=== PATIENT | female | born 1950 | race Hispanic/Latino ===

== ENCOUNTER 2016-10-26 17:13 | Emergency (ER) | payer OTHER, MEDICARE, BC ==
[2016-10-26 17:14] VITALS: BMI 36.0
[2016-10-26 17:34] VITALS: TEMP 98
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
[2016-10-26 18:47] VITALS: BP 137/74; PULSE 79; RESP 18; O2SAT 100
== END 2016-10-26 18:44 | disposition home or self-care (01) ==
LOC: ED 17:13
DX: Z04.1 Encounter for examination and observation following transport accident (principal)

== ENCOUNTER 2016-11-14 10:12 | Observation (INO) | payer MEDICARE, BC ==
[2016-11-14 10:54] LABS: BASO # 0.04 K/mm3 (0.0-2.0); BASO % 0.4 % (0.0-3.0); EOS # 0.1 (0.0-0.7); EOS % 0.6 % (1.5-5.0); GRAN # 7.66 (1.4-6.5); GRAN % 73.9 % (50.0-68.0); HEMATOCRIT 36.4 % (36.0-48.0); LYMPH % 18.8 % (22.0-35.0); MEAN CELL VOLUME 88.6 fl (80.0-105.0); MEAN CORPUSCULAR HEMOGLOBIN 30.9 pg (25.0-35.0); MEAN CORPUSCULAR HGB CONC 34.9 g/dl (31.0-37.0); MEAN PLATELET VOLUME 9.6 fl (7.0-11.0); MONO # 0.7 (0.1-0.6); MONO % 6.3 % (1.0-6.0); RED CELL DISTRIBUTION WIDTH 13.2 % (11.5-14.5); WHITE BLOOD COUNT 10.4 10^3/ul (4.5-11.0)
[2016-11-14] MEDS ORDERED: Enoxaparin 100 mg Syringe SC STA (10:58)
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
[2016-11-14 10:59] LABS: INR 0.98 (0.93-1.08); PARTIAL THROMBOPLASTIN TIME 26.8 Seconds (23.7-30.8)
[2016-11-14 11:02] LABS: ALB/GLOB RATIO 1.5 (1.1-1.8); ALKALINE PHOSPHATASE 99 U/L (38-133); ALT/SGPT 28 U/L (7-56); AST/SGOT 30 U/L (15-39); BILIRUBIN,TOTAL 0.6 mg/dL (0.2-1.3); BLOOD UREA NITROGEN 24 mg/dL (7-21); CALCIUM 9.5 mg/dL (8.4-10.5); CARBON DIOXIDE 26 mmol/L (21-33); CHLORIDE 101 mmol/L (98-107); GFR AFRICAN-AMERICAN > 60; GLUCOSE,RANDOM 109 mg/dL (70-110); MAGNESIUM 1.6 mg/dL (1.7-2.2); POTASSIUM 4.2 mmol/L (3.6-5.0); SODIUM 139 mmol/L (132-148); TOTAL PROTEIN 6.8 g/dL (5.8-8.3)
[2016-11-14 11:19] LABS: TROPONIN I < 0.01 ng/mL
--- NOTE | 2016-11-14 11:21 | RAD ---
HISTORY: Chest pain COMPARISON: 06/12/2012. FINDINGS: LUNGS: The lungs are well inflated and clear. PLEURA: No significant pleural effusion identified, no pneumothorax apparent. CARDIOVASCULAR: Normal. OSSEOUS STRUCTURES: No significant abnormalities. VISUALIZED UPPER ABDOMEN: Normal. OTHER FINDINGS: None. IMPRESSION: No active pulmonary disease.
[2016-11-14 11:23] LABS: PH,URINE 6.5 (4.7-8.0); URINE BILIRUBIN NEGATIVE (NEGATIVE); URINE BLOOD NEGATIVE (NEGATIVE); URINE GLUCOSE (UA) NEGATIVE (NEGATIVE); URINE KETONE NEGATIVE (NEGATIVE); URINE LEUKOCYTE ESTERASE NEGATIVE Leu/uL (NEGATIVE); URINE PROTEIN NEGATIVE mg/dL (<30 mg/dL); URINE UROBILINOGEN 0.2 E.U./dL (<1 E.U./dL)
[2016-11-14 11:25] LABS: URINE APPEARANCE CLEAR (CLEAR); URINE COLOR YELLOW (YELLOW)
--- NOTE | 2016-11-14 12:56 | CARD ---
APPROVED REPORT EKG Measurement Heart [id number] <Conclusion> Atrial fibrillation with rapid ventricular response with premature ventricular or aberrantly conducted complexes Left axis deviation Nonspecific ST abnormality Abnormal ECG
[2016-11-14 15:25] VITALS: BMI 35.3
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
[2016-11-15 06:02] VITALS: O2SAT 97
[2016-11-15] MEDS ORDERED: Magnesium Oxide 400 mg Tab UD PO SCH (10:00)
--- NOTE | 2016-11-15 11:42 | CARD ---
APPROVED REPORT EKG Measurement Heart [id number] <Conclusion> Sinus bradycardia Otherwise normal ECG
[2016-11-15 11:54] VITALS: BP 140/75; PULSE 55; RESP 18; TEMP 97.5
--- NOTE | 2016-11-15 18:24 | CARD ---
APPROVED REPORT EXAM: Two-dimensional and M-mode echocardiogram with Doppler and color Doppler. INDICATION Atrial Fibrillation 2D DIMENSIONS Left Atrium (2D)3.6 (1.6-4.0cm)IVSd1.0 (0.7-1.1cm) LVDd4.7 (3.9-5.9cm)PWd1.1 (0.7-1.1cm) LVDs2.7 (2.5-4.0cm)FS (%) 42.0 % LVEF (%)73.0 (>50%) M-Mode DIMENSIONS Aortic Root3.30 (2.2-3.7cm)Aortic Cusp Exc.2.00 (1.5-2.0cm) Aortic Valve AoV Peak Kmuqpoid538.0cm/Purnima Peak GR.7mmHg Mitral Valve MV E Chajmhqq59.7cm/sMV A Sauaxxho93.6cm/sE/A ratio1.3 TDI E/Lateral E'0.0E/Medial E'0.0 Tricuspid Valve TR Peak [id number]/sRAP [id number] Peak Gr.27mmHg [id number] LEFT VENTRICLE The left ventricle is normal size. There is normal left ventricular wall thickness. The left ventricular function is normal. The left ventricular ejection fraction is within the normal range. There is normal LV segmental wall motion. RIGHT VENTRICLE The right ventricle is normal size. The right ventricular systolic function is normal. ATRIA The left atrium size is normal. The right atrium size is normal. The interatrial septum is intact with no evidence for an atrial septal defect. AORTIC VALVE The aortic valve is mildly sclerotic. There is trace aortic regurgitation. There is no aortic valvular stenosis. MITRAL VALVE The mitral valve is normal in structure. There is no mitral valve regurgitation noted. TRICUSPID VALVE The tricuspid valve is normal in structure. There is mild tricuspid regurgitation. PULMONIC VALVE The pulmonary valve is normal in structure. GREAT VESSELS The aortic root is normal in size. The IVC is normal in size and collapses >50% with inspiration. PERICARDIAL EFFUSION There is no pleural effusion. There is no pericardial effusion. <Conclusion> Normal chamber size. Normal LV systolic function. Mild TR.
--- NOTE | 2016-11-16 00:41 | PN ---
DATE: 11/15/2016 SUBJECTIVE: The patient is seen sitting in chair on telemetry. She is comfortable. She converted to sinus rhythm yesterday afternoon. She has had no further chest pain. CURRENT MEDICATIONS: Include diltiazem 60 mg t.i.d., hydrochlorothiazide 25 mg daily, Zestril 5 mg daily, and magnesium oxide. OBJECTIVE: GENERAL: She is a middle-aged woman who appears comfortable at the present time. VITAL SIGNS: Blood pressure is 110/70, pulse of 74 and sinus, respirations are 14. She is afebrile. HEENT: No JVD. CHEST: Clear to auscultation and percussion. HEART: PMI in normal position. No pathologic murmur or gallops noted. ABDOMEN: Soft and nontender with normoactive bowel sounds. EXTREMITIES: No edema. DIAGNOSTIC DATA: Cardiac enzymes are negative. TSH was 3.14. Echocardiogram is pending. IMPRESSION: 1. Paroxysmal atrial fibrillation, currently in sinus rhythm. 2. History of hypertension. RECOMMENDATIONS: From cardiac standpoint, she appears stable. We will discharge home at this time. She will be discharged home on long-acting diltiazem in place of her amlodipine. An echocardiogram is pending and will be reviewed. Now, the patient's stress test will be planned as well. One aspirin daily was advised. She has recurrent atrial fibrillation and rate control therapy can be considered. Desmond Carcamo MD
--- NOTE | 2016-11-16 02:50 | HP ---
CHIEF COMPLAINT AND HISTORY OF PRESENT ILLNESS: This is a 66-year-old female who came into the hospital, was found to be in atrial fibrillation. She is having chest pain. The patient has a history of hypertension. She states that she has woken up in the morning, before going to work, started having shortness of breath and thought she was anxious, she was lightheaded, so she decided to have her drive her to work. 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 She is trying to see Dr. Crowley while at work, and he had evaluated her and found that she was having an irregular heart beat, so she was sent to the emergency room for further evaluation. The patient says that she has not had these symptoms in the past. She has no complaints of any fever or chills. No nausea. No vomiting. She feels well. She has gone back into the sinus rhythm. REVIEW OF SYSTEMS: All the review of symptoms are within normal limits except what is mentioned. SOCIAL HISTORY: She smoked about 20 years ago, but quit about 20 years ago. FAMILY HISTORY: No premature heart disease in the family. Father's health is unknown. She has a sister who had stent placement in the 50s. Mother heart disease as well. PAST MEDICAL HISTORY: Osteoarthritis, hypertension. PAST SURGICAL HISTORY: Bilateral hip replacement, cholecystectomy, spinal surgery x2 with rods and screws in place, tonsillectomy, right eye surgery. ALLERGIES: NO KNOWN DRUG ALLERGIES. HOME MEDICATIONS: Lisinopril 5 mg daily, amlodipine 10 mg daily, hydrochlorothiazide 25 mg. PHYSICAL EXAMINATION VITAL SIGNS: Temperature is 97.5, pulse is 55, blood pressure 140/75 and respirations 18. Height is 5 feet 4 inches. Weight is 270 pounds. BMI is 35. GENERAL: The patient lying in bed, uncomfortable, and in no acute distress. HEENT: Atraumatic and normocephalic. Anicteric sclerae. Moist mucosa. [place] conjunctivae. No oral lesions. NECK: No JVD, anterior and posterior adenopathy, thyromegaly, or bruits. CARDIOVASCULAR: S1 and S2 regular. No murmur, rubs, or gallop. LUNGS: Clear to auscultation bilaterally. No wheezes, rales, or rhonchi. ABDOMEN: Bowel sounds are positive. Soft, nontender and nondistended. No hepatosplenomegaly. No rebound and no guarding. NEUROLOGIC: No facial asymmetry. Tongue is midline. No uvula deviation. Power is 5/5 upper extremity and lower extremity. Sensation intact in upper extremity and lower extremity. PSYCHIATRIC: She is awake, alert and oriented x3. No anxiety or depression. She has normal affect. GENITOURINARY: No CVA tenderness. VASCULAR: 2+ pulses in the carotid pulses and pedal pulses. SKIN: No erythema or nodules SPINE: Shows normal curvature. EXTREMITIES: No Cyanosis and clubbing, no edema. Last EKG done showed sinus bradycardia at 52, no ST-T changes. There was an echo that was done that showed normal chamber size, normal LV function. Chest x-ray done shows no acute pulmonary disease. LABORATORY: Labs have been reviewed. White count is 10.4, hemoglobin is 12.7, TSH is 3.1. Cardiac enzymes x3 is negative. Pro-BNP is 1470. ASSESSMENT: 1. Paroxysmal atrial fibrillation. 2. Hypertension. PLAN: The patient is currently comfortable. The patient's echo is normal. She will most likely need to be on aspirin. She has come back into sinus rhythm. She will continue her blood pressure medications. She is on a heart healthy diet. She will be discharged home. She was seen by cardiology and cleared to be discharged. Condition stable. Activities increase as tolerated. Follow up with Dr. Carcamo in 1 to 2 weeks and continue to follow with Dr. Nguyễn in 1 to 2 weeks. Tashi Simon MD
[2016-11-17] MEDS ORDERED: diltiaZEM 180 mg/24 Hours CD Cap PO SCH (10:00)
== END 2016-11-15 16:26 | disposition home or self-care (01) ==
LOC: ED 10:12 → ERH 11:39 → 2RNO 12:58
PROVIDERS: ADMIT Internal Medicine Nephrology; ATTEND Internal Medicine Nephrology
DX: I48.0 Paroxysmal atrial fibrillation (principal); I11.9 Hypertensive heart disease without heart failure; R07.89 Other chest pain; M19.90 Unspecified osteoarthritis, unspecified site; Z96.643 Presence of artificial hip joint, bilateral; E78.5 Hyperlipidemia, unspecified; Z82.49 Family history of ischemic heart disease and other diseases of the circulatory system; Z87.891 Personal history of nicotine dependence
CPT/HCPCS: 36415; 71010; 80053; 81003; 82550; 83615; 83735; 83880; 84443; 84484; 85025; 85610; 85730; 93005; 93306; 96372; 99284; G0378; J1650